=== PATIENT | female | born 1995 | race Hispanic/Latino ===

== ENCOUNTER 2016-09-25 13:29 | Inpatient (IN) ==
[2016-09-25 14:24] LABS: URINE SOURCE VOIDED
[2016-09-25 14:31] LABS: BILIRUBIN URINE NEGATIVE (NEGATIVE); BLOOD URINE 2+ (NEGATIVE); CLARITY CLEAR (CLEAR); COLOR YELLOW; GLUCOSE URINE NEGATIVE (NEGATIVE); LEUKOCYTES URINE 2+ (NEGATIVE); NITRITE URINE NEGATIVE (NEGATIVE); PROTEIN URINE NEGATIVE (NEGATIVE); SP GRAVITY URINE 1.005; UROBILINOGEN URINE NORMAL
[2016-09-25] MEDS ORDERED: TYLENOL PO PRN (14:54)
[2016-09-25] MEDS ORDERED: AMPICILLIN 2 GM/NS 2 GM/100 ML IVPB IV ONE (14:54)
[2016-09-25] MEDS ORDERED: PITOCIN 30 UNITS/LR 30 UNITS/500 ML IV.SOLN IV SCH (14:54)
[2016-09-25] MEDS ORDERED: PEPCID PO PRN (14:54)
[2016-09-25] MEDS ORDERED: PEPCID PO ONE (14:54)
[2016-09-25] MEDS ORDERED: KEFZOL 1 GM/D5W 1 GM/50 ML IVPB IV PRN (14:54)
[2016-09-25] MEDS ORDERED: LR 1,000 ML IV SCH (14:54)
[2016-09-25] MEDS ORDERED: REGLAN PO ONE (14:54)
[2016-09-25] MEDS ORDERED: PEPCID IV PRN (14:54)
[2016-09-25] MEDS ORDERED: SODIUM CHLORIDE 0.9% INJ SCH (15:00)
[2016-09-25] MEDS ORDERED: MINERAL OIL ONE (15:15)
[2016-09-25] MEDS ORDERED: XYLOCAINE-MPF 1% ONE (15:15)
[2016-09-25 15:51] LABS: BASO% 0.1 % (0.0-0.8); EOS# 0.05 X1000 (0.0-0.7); EOS% 0.3 % (0.0-10.0); HEMATOCRIT 38.8 % (37.0-47.0); HEMOGLOBIN 13.1 g/dL (12.0-16.0); IMM GRAN# 0.05 X1000 (0.0-0.04); IMM GRAN% 0.3 % (0.0-0.5); LYMPH# 1.17 X1000 (1.2-3.4); MANUAL DIFF NEEDED? NO; MCH 29.4 PG (27-31); MCHC 33.8 g/dL (33-37); MCV 87.2 FL (81-99); MONO# 0.69 X1000 (0.11-0.59); MONO% 4.7 % (1.7-9.3); NEUT% 86.6 % (42.2-75.2); PLT 234 X1000 (130-400); RBC 4.45 XMIL (4.2-5.4)
[2016-09-25] MEDS ORDERED: FENTANYL-BUPIV-NS 2 MCG-0.1% 200 ML EPIDURAL PRN (15:57)
[2016-09-25] MEDS ORDERED: MARCAINE 0.25% PF INJ ONE (16:00)
[2016-09-25] MEDS: ZOFRAN IV PRN (16:11)
[2016-09-25] MEDS: STADOL IV PRN ×3 (17:10→20:34)
[2016-09-25] MEDS: AMPICILLIN 1 GM/NS 1 GM/50 ML IVPB IV SCH (19:28)
[2016-09-25] MEDS ORDERED: DILAUDID IV ONE (23:39)
[2016-09-26] MEDS: STADOL IV PRN (00:02)
[2016-09-26] MEDS ORDERED: PITOCIN 20 UNITS/LR 20 UNITS/1,000 ML IV.SOLN ONE (00:11)
[2016-09-26] MEDS ORDERED: AMBIEN PO PRN (00:12)
[2016-09-26] MEDS ORDERED: PITOCIN 30 UNITS/LR 30 UNITS/500 ML IV.SOLN IV ONE (00:12)
[2016-09-26] MEDS ORDERED: HYDROXYZINE IM PRN (00:12)
[2016-09-26] MEDS ORDERED: BENADRYL PO PRN (00:12)
[2016-09-26] MEDS ORDERED: BOOSTRIX VACCINE IM ONE (00:12)
[2016-09-26] MEDS ORDERED: PITOCIN IM PRN (00:12)
[2016-09-26] MEDS ORDERED: MINERAL OIL PO PRN (00:12)
[2016-09-26] MEDS ORDERED: BENADRYL IV PRN (00:12)
[2016-09-26] MEDS ORDERED: PERCOCET-5 PO PRN (00:12)
[2016-09-26] MEDS ORDERED: XYLOCAINE-MPF 1% INJ PRN (00:12)
[2016-09-26] MEDS ORDERED: M-M-R II VACCINE SUBQ ONE (00:12)
[2016-09-26] MEDS ORDERED: PERI MEDS (DERMOPLAST/NUPERCAINAL/TUCKS) MISC PRN (00:12)
[2016-09-26] MEDS ORDERED: PITOCIN 20 UNITS/LR 20 UNITS/1,000 ML IV.SOLN IV SCH (00:12)
[2016-09-26] MEDS ORDERED: HYDROXYZINE PO PRN (00:12)
[2016-09-26] MEDS ORDERED: CYTOTEC PO PRN (00:12)
[2016-09-26] MEDS ORDERED: PERCOCET-10 PO PRN (00:12)
[2016-09-26] MEDS: AMPICILLIN 1 GM/NS 1 GM/50 ML IVPB IV SCH ×2 (00:32→03:24)
[2016-09-26] MEDS: ZOFRAN IV PRN (02:31)
[2016-09-26] MEDS: MOTRIN PO PRN ×3 (04:20→21:15)
[2016-09-26] MEDS: PERICOLACE PO SCH (21:11)
[2016-09-27 06:51] LABS: HEMATOCRIT 36.3 % (37.0-47.0); HEMOGLOBIN 12.1 g/dL (12.0-16.0); MCHC 33.3 g/dL (33-37); MCV 90.1 FL (81-99); MPV 10.1 FL (7.4-10.4); RBC 4.03 XMIL (4.2-5.4)
[2016-09-27] MEDS: MOTRIN PO PRN ×2 (07:54→15:50)
[2016-09-27] MEDS: PERICOLACE PO SCH (20:20)
== END 2016-09-28 11:00 | disposition home or self-care (01) ==
LOC: P.OPLD 13:29 → P.LD 13:38 → P.WC 09-26 11:23
PROVIDERS: ADMIT Obstetrics & Gynecology; ATTEND Obstetrics & Gynecology